=== PATIENT | male | born 1970 | race Caucasian/White ===

== ENCOUNTER 2018-12-19 09:13 | Emergency (ER) | payer OTHER, SELFPAY ==
[2018-12-19 09:15] VITALS: BP 158/111; PULSE 74; RESP 20; TEMP 37.1; O2SAT 99; BMI 27.6
--- NOTE | 2018-12-19 09:41 | PC.NURSE ---
Pt reports jaw pain on L at mandibular joint x 2-3 days. worse when chewing or clenching down. reports that he thinks its allergies. pain travels into ear. appears well. NAD.
--- NOTE | 2018-12-19 09:55 | ED.GENADULT ---
HPI - General Adult General Chief complaint: Dental/Oral Stated complaint: jaw pain/cant close mouth Time Seen by Provider: 12/19/18 09:44 Source: patient Mode of arrival: ambulatory Limitations: no limitations History of Present Illness HPI narrative: This is a 48-year-old male comes to the emergency department with complaint of pain in his jaw and it is uncomfortable when he bites down. Patient states has been going on for about 8-10 days. He states he tried to follow up his primary care but they told him that would be a long weight and he should go to the emergency department. Has not had fevers, no chills. Patient has some refill seasonal allergies with nasal congestion a little bit of mild cough that is been nonproductive. He states that actually been improving. He denies any dental pain, he denies any pain in the anterior face, he describes that it is a little bit below the ear and over the bottom of the jaw. Patient isn't sure if it has been swollen because he has a huang, he has not noticed any redness. He has not had any sensation of ingrown hairs. He has had dry mouth before and some sort of salivary gland issue but states that he has an appreciated that today. He states that he is able to open his mouth and chewing is fine as long as he does not bite down too hard. He denies any other symptoms. No chest pain, shortness of breath no nausea vomiting no other GI or urinary symptoms. He denies any current medications. Denies any prior surgeries. No tobacco, occasional alcohol, no illicit. Related Data Home Medications Medication Instructions Recorded Confirmed amlodipine 5 mg PO QPM 12/19/18 12/19/18 telmisartan [Micardis] 40 mg PO QPM 12/19/18 12/19/18 Previous Rx's Medication Instructions Recorded amoxicillin-pot clavulanate 1 tab PO Q12H #14 tab 12/19/18 [Augmentin] Review of Systems Review of Systems ROS Unobtainable: All systems reviewed & are unremarkable except as noted in HPI and below Constitutional Reports headache(s) (Mild earlier in the week gone now) ENT Ears, Nose, Mouth, and Throat: Reports as per HPI, Denies change in voice, Denies dental pain, Denies dysphagia, Denies dry mouth, Denies ear discharge, Denies otalgia, Reports facial pain, Reports headache(s) (Mild earlier in the week gone now), Denies hoarseness, Denies lip swelling, Denies mouth lesions, Denies mouth pain, Denies nasal congestion, Denies neck mass, Denies neck pain, Denies post nasal drip, Denies sinus pain, Denies sinus pressure, Denies sore throat, Denies throat swelling and Denies tongue swelling Gastrointestinal Gastrointestinal: Denies dysphagia Musculoskeletal Denies neck pain Neurologic Reports headache(s) (Mild earlier in the week gone now) Allergic/Immunologic Denies lip swelling, Denies throat swelling and Denies tongue swelling [facility] [place] Social History Smoking Status: Never smoker Social History (Updated 12/19/18 @ 09:59 by Nemo Acharya DO) Smoking Status: Never smoker alcohol intake: current substance use type: does not use Exam Narrative Exam Narrative: GEN: well nourished, well appearing male, alert and oriented x 3, patient appears to be in no acute distress. HEENT: Atraumatic, pupils are equal round reactive to light, extraocular movements are intact, nares are clear, TMs are clear with no fluid, there is no conjunctival pallor. Throat is clear without any exudates, erythema, tonsillar enlargement or uvular deviation, patient does not have any dental pain on exam, he has normal dentition no swelling of the tongue, no swelling is appreciated of the inner oral mucosa, there is no discharge from the salivary gland. Patient does appear to have some very mild swelling of the right cheek spreading posterior to the angle of the mandible and underneath the ear. It appears very mild. There is some mild erythema but it is difficult to evaluate in comparison to the other side secondary to patient's thick huang. Patient does not have any tenderness over the TMJ and no click or grinding. No malocclusion noted. No sinus tenderness. Patient does not have any tenderness of the thyroid or neck. No swelling of the neck is noted. HEART: Regular rate and rhythm without murmur, clicks, rubs. LUNGS:Lungs clear to auscultation, no wheezes, rales, crackles, chest moves symmetrically ABD:bowel sounds normal, soft, non-tender, no guarding, rebound, rigidity, no masses noted, no hepatosplenomegaly :No CVA tenderness MSCL: Non-tender, no muscle atrophy, muscles strength 5/5 upper and lower extremities, full range of motion, normal gait NEURO:CN 2-12 intact, sensation normal SKIN: see above. Initial Vital Signs Initial Vital Signs: Vital Signs Temperature 98.7 F 12/19/18 09:15 Pulse Rate 74 12/19/18 09:15 Respiratory Rate 20 12/19/18 09:15 Blood Pressure 158/111 H 12/19/18 09:15 Pulse Oximetry 99 12/19/18 09:15 Course Vital Signs - 8 hr 12/19/18 09:15 Temperature 98.7 F Pulse Rate 74 Respiratory Rate 20 Blood Pressure 158/111 H Pulse Oximetry 99 Medical Decision Making MDM Narrative Medical decision making narrative: Patient and I discussed that I suspect he may have a little bit of cellulitis or infection although per tight is, sialadenitis, loculated us, dental infection or other possible Um obstructions of the salivary duct her all on the differential. Patient's tenderness is actually below the TMJ area so this is much less likely. Patient has some mild swelling and redness but not significantly that would indicate he needs further imaging or workup at this time. We did discuss signs and symptoms to watch out for and reasons to return emergently. He states that he did have some sort of salivary gland issue in the past but states that this feels different, he states that he also had dry mouth at that time. Discharge Plan Departure Patient Disposition: Home Clinical Impression: Cellulitis of face Discharge Date/Time: 12/19/18 10:13 Interventions: ED Discharge Assessment Last Done: 12/19/18 10:12 Instructions: DI for Cellulitis -- Adult Activity Restrictions/Additional Instructions: Follow up in the next 3-5 days for symptoms are not improving. Call for an appointment. You may take Tylenol up to a 1000 mg every 8 hours as needed. You may take ibuprofen up to 800 mg every 8 hours as needed in combination if you wish. Start antibiotics today continue until completed. Sucking on lemon or tart candies may be helpful. Return emergency department if you fevers greater 100.4 F, rapidly worsening swelling, redness or pain, hoarseness or difficulty with speech, swallowing, lightheadedness, passing out, persistent vomiting or other new or concerning symptoms. Prescriptions: New amoxicillin-pot clavulanate [Augmentin] 875-125 mg tablet 1 tab PO Q12H Qty: 14 RF: 0 No Action amlodipine 5 mg tablet 5 mg PO QPM RF: 0 telmisartan [Micardis] 40 mg tablet 40 mg PO QPM RF: 0
[2018-12-19 10:11] VITALS: BP 162/103; PULSE 65; RESP 16; O2SAT 97
== END 2018-12-19 10:13 | disposition home or self-care (01) ==
PROVIDERS: Emergency Provider Emergency Medicine
DX: L03.211 Cellulitis of face (principal)
CPT/HCPCS: 99282; 99283

== ENCOUNTER → 2022-11-02 15:14 | Outpatient (CLI) | payer OTHER, SELFPAY ==
--- NOTE | 2022-11-02 | DI.US.S_ITS ---
PROCEDURE: US ABDOMEN LIMITED INDICATIONS: Elevation of levels of liver transaminase levels TECHNIQUE: Real-time scanning was performed of the abdominal and retroperitoneal organs, with image documentation. COMPARISON: None. FINDINGS: Liver: The liver measures 15.6 cm in length and demonstrates increased echogenicity throughout. Gallbladder: The gallbladder wall measures 1.7 mm in diameter. No stones, sludge, pericholecystic fluid, or sonographic Fuentes sign. Biliary ducts: Intrahepatic bile ducts are non-dilated. Extrahepatic bile duct caliber measures 4 mm. Normal is 6-7 mm or less in diameter, or 10 mm or less post-cholecystectomy. Pancreas: The pancreas is not visualized. Miscellaneous: No free abdominal fluid. IMPRESSION: 1. Increased hepatic echogenicity noted likely related to fatty infiltration of the liver but other sources of hepatocellular disease cannot be excluded. 2. No cholelithiasis or findings to suggest choledocholithiasis or acute cholecystitis. Dictated by: Claire Araujo M.D. on 11/03/2022 at 8:30 Approved by: Claire Araujo M.D. on 11/03/2022 at 8:31
== END ==
PROVIDERS: Referring Provider Registered Nurse; Visit Provider Registered Nurse
DX: R74.01 Elevation of levels of liver transaminase levels (principal)
CPT/HCPCS: 76705